=== PATIENT | male | born 1945 | race Caucasian/White ===

== ENCOUNTER 2023-08-19 08:42 | Emergency (ER) | payer OTHER ==
[~2023-08-19] VITALS: Ht 182.9 cm; Wt 104.3 kg
[2023-08-19] MEDS ORDERED: ONDANSETRON HCL/PF 4 MG/2 ML VIAL ONE (09:08)
[2023-08-19] MEDS ORDERED: MECLIZINE HCL 25 MG TABLET ONE (09:08)
[2023-08-19] MEDS ORDERED: IV NS 0.9% 1,000 ML BAG IV ONE (09:30)
[2023-08-19] MEDS ORDERED: MECLIZINE HCL 12.5 MG TABLET PO ONE (09:30)
[2023-08-19] MEDS ORDERED: ONDANSETRON HCL/PF 4 MG/2 ML VIAL IVP ONE (09:30)
[2023-08-19 09:52] LABS: BASOPHILS # (AUTO) 0.1 K/uL (0.0-0.2); BASOPHILS % (AUTO) 0.9 % (0.0-2.0); EOSINOPHILS # (AUTO) 0.2 K/uL (0.0-0.7); EOSINOPHILS % (AUTO) 2.8 % (0.0-6.0); HEMATOCRIT 41 % (39-51); HEMOGLOBIN 13.5 g/dL (13.5-17.5); LYMPHOCYTES # (AUTO) 1.2 K/uL (0.8-4.8); MEAN CORPUSCULAR HEMOGLOBIN 31 PG (26.0-33.0); MEAN CORPUSCULAR HGB CONC 33 g/dl (31.0-36.0); MEAN CORPUSCULAR VOLUME 93 fL (80-96); MONOCYTES # (AUTO) 0.5 K/uL (0.1-1.30); MONOCYTES % (AUTO) 9.6 % (2.0-12.0); NEUTROPHILS # (AUTO) 3.7 K/uL (1.8-8.9); NEUTROPHILS % (AUTO) 65.7 % (43.0-81.0); PLATELET COUNT (AUTO) 176 K/uL (150-450); RED BLOOD CELL COUNT(AUTO) 4.37 MIL/uL (4.5-6.0); RED CELL DISTRIBUTION WIDTH 14.8 % (11.5-15.0); WHITE BLOOD COUNT (AUTO) 5.6 K/uL (4.3-11.0)
[2023-08-19 10:17] LABS: PARTIAL THROMBOPLASTIN TIME 30.7 SEC (24.3-34.3); PROTHROMBIN TIME 10.6 SECS (9.2-11.1)
[2023-08-19 10:18] LABS: CALCIUM, SERUM 9.1 mg/dL (8.5-10.1); CARBON DIOXIDE 24 mmol/L (21-32); CHLORIDE 106 mmol/L (98-107); CREATININE 0.8 mg/dL (0.6-1.3); GLUCOSE 115 mg/dL (74-106); SODIUM SERUM 138 mmol/L (136-145); UREA NITROGEN, BLOOD 12 mg/dL (7-18)
[2023-08-19 10:30] LABS: ALANINE AMINOTRANSFERASE 27 U/L (12-78); ALBUMIN 3.5 g/dL (3.4-5.0); ALKALINE PHOSPHATASE 75 U/L (46-116); ASPARTATE AMINOTRANSFERASE 13 U/L (15-37); BILIRUBIN,DIRECT 0.1 mg/dL (0.0-0.2); BILIRUBIN,TOTAL 0.7 mg/dL (0.2-1.0); TOTAL PROTEIN, SERUM 6.9 g/dL (6.4-8.2)
[2023-08-19] MEDS ORDERED: MECL-159 PO (10:49)
[2023-08-19 12:03] VITALS: BP 137/83; TEMP 98.7; O2SAT 100
== END 2023-08-19 12:03 | disposition home or self-care (01) ==
LOC: ER 09:01
DX: R42 Dizziness and giddiness (principal); R07.89 Other chest pain
CPT/HCPCS: 99285; 96374; 70450; 71045; 96361; 93005; 85025; 80048; 80076; 36415; 84484; 85730; 82962; J8597; J2405; J7030

== ENCOUNTER 2025-01-25 10:45 | Emergency (ER) | payer OTHER ==
[~2025-01-25] VITALS: Ht 182.9 cm; Wt 102.1 kg
[~2025-01-25 10:45] MED LIST: MECL-159 PO
[2025-01-25 12:01] VITALS: BP 136/74; TEMP 98; O2SAT 98
== END 2025-01-25 12:03 | disposition home or self-care (01) ==
LOC: ER 10:45
DX: R33.9 Retention of urine, unspecified (principal)

== ENCOUNTER 2025-04-04 09:46 | Emergency (ER) | payer OTHER ==
[~2025-04-04] VITALS: Ht 182.9 cm; Wt 104.3 kg
[2025-04-04 09:50] VITALS: TEMP 98
[2025-04-04 10:18] LABS: PLATELET COUNT (AUTO) 176 K/uL (150-450); RED BLOOD CELL COUNT(AUTO) 4.91 MIL/uL (4.5-6.0); RED CELL DISTRIBUTION WIDTH 15.1 % (11.5-15.0); WHITE BLOOD COUNT (AUTO) 8.4 K/uL (4.3-11.0)
[2025-04-04 10:29] LABS: CALCIUM, SERUM 9.7 mg/dL (8.5-10.1); CREATININE 0.8 mg/dL (0.6-1.3); SODIUM SERUM 144 mmol/L (136-145); UREA NITROGEN, BLOOD 13 mg/dL (7-18)
[2025-04-04 12:32] VITALS: BP 130/86; O2SAT 97
== END 2025-04-04 12:35 | disposition home or self-care (01) ==
LOC: ER 09:46
DX: R07.89 Other chest pain (principal); I10 Essential (primary) hypertension; J90 Pleural effusion, not elsewhere classified; N40.0 Benign prostatic hyperplasia without lower urinary tract symptoms; R06.02 Shortness of breath; Z79.899 Other long term (current) drug therapy
CPT/HCPCS: 36415; 71045-TC; 80048-TC; 83880; 84484-TC; 85025-TC